=== PATIENT | female | born 1945 | race African-American/Black ===

== ENCOUNTER 2018-05-06 13:31 | Emergency (ER) | payer MEDICARE, MEDICAID ==
[~2018-05-06] VITALS: Ht 170.2 cm; Wt 82.0 kg
[~2018-05-06 13:31] MED LIST: ALPR0.5T PO; ASPI-1159 PO; ATOR20TA65 PO; BENZ200C52 PO; CARV6.2548 PO; Eliquis PO; FURO40TA5 PO; OLME20TA14 PO; POTA10TA15 PO; SPIR25TA6 PO
[2018-05-06 15:18] LABS: HEMATOCRIT. 34.2 % (36.0-48.0); HEMOGLOBIN. 11.7 g/dL (12.0-16.0); MEAN CORPUSCULAR HEMOGLOBIN 30.8 pg (28.0-32.0); MEAN CORPUSCULAR VOLUME 90.5 fL (81.0-99.0); MEAN PLATELET VOLUME 7.6 fl (7.4-10.4); PLATELET 182 x1000/uL (130-400); RED BLOOD CELL COUNT 3.78 mill/uL (4.2-5.4); RED CELL DISTRIBUTION WIDTH 13.8 % (11.6-14.6)
[2018-05-06 15:20] LABS: CHLORIDE 102 mEq/L (98-107)
[2018-05-06 16:04] LABS: ATYPICAL LYMPHOCYTES 2; PLATELET ESTIMATE NORMAL
[2018-05-06 22:49] VITALS: BP 120/68
== END 2018-05-06 22:51 | disposition home or self-care (01) ==
LOC: ER 15:28
DX: R09.82 Postnasal drip (principal); L20.9 Atopic dermatitis, unspecified; I10 Essential (primary) hypertension; R21 Rash and other nonspecific skin eruption; Z79.82 Long term (current) use of aspirin; Z79.899 Other long term (current) drug therapy; Z90.10 Acquired absence of unspecified breast and nipple
CPT/HCPCS: 36415; 71045; 80053; 85025; 99285

== ENCOUNTER 2018-05-09 15:58 | Inpatient (IN) | payer MEDICARE, MEDICAID ==
[~2018-05-09] VITALS: Ht 170.2 cm; Wt 88.9 kg
[2018-05-09] MEDS ORDERED: KETOROLAC 30MG/ML VIAL IV STA (16:45)
[2018-05-09] MEDS ORDERED: SODIUM CHLORIDE 0.9% 1,000 ML IV ONE ×4 (16:45→22:21)
[2018-05-09 17:32] LABS: HEMATOCRIT. 40.1 % (36.0-48.0); HEMOGLOBIN. 13.4 g/dL (12.0-16.0); MEAN CORPUSCULAR HEMOGLOBIN 30.5 pg (28.0-32.0); MEAN CORPUSCULAR VOLUME 90.9 fL (81.0-99.0); MEAN PLATELET VOLUME 8.5 fl (7.4-10.4); PLATELET 134 x1000/uL (130-400); RED BLOOD CELL COUNT 4.41 mill/uL (4.2-5.4)
[2018-05-09 17:36] LABS: CHLORIDE 100 mEq/L (98-107)
[2018-05-09 17:39] LABS: INR 1.3; PROTHROMBIN TIME 13.1 sec (9.1-11.1)
[2018-05-09 17:59] LABS: PLATELET ESTIMATE NORMAL
[2018-05-09] MEDS ORDERED: PIPERACILLIN/TAZ 3.375G PREMIX 50 ML IV ONE (18:30)
[2018-05-09] MEDS ORDERED: VANCOMYCIN 1 G PREMIX 200 ML IV ONE (18:30)
[2018-05-09 23:02] VITALS: BP 111/53
[2018-05-09 23:09] VITALS: BP 100/49
[2018-05-09 23:26] VITALS: BP 111/53
[2018-05-09 23:30] VITALS: BP 119/55
[2018-05-10] VITALS (29 sets, daily range): BP systolic 91–169; BP diastolic 36–113
[2018-05-10] MEDS ORDERED: ONDANSETRON HCL 4MG/2ML VIAL IV PRN (00:15)
[2018-05-10] MEDS ORDERED: TRAMADOL 50MG TABLET PO PRN (01:00)
[2018-05-10] MEDS: BACLOFEN 10MG TABLET PO PRN ×2 (01:31→21:46)
[2018-05-10] MEDS: DEXT 5%/0.45% NACL 1000ML 1,000 ML IV SCH ×2 (01:31→21:47)
[2018-05-10] MEDS: PIPERACILLIN/TAZ 2.25G PREMIX 50 ML IV SCH ×3 (05:30→21:47)
[2018-05-10 05:31] LABS: CHLORIDE 103 mEq/L (98-107); HEMATOCRIT. 31.9 % (36.0-48.0); HEMOGLOBIN. 10.8 g/dL (12.0-16.0); MEAN CORPUSCULAR HEMOGLOBIN 30.8 pg (28.0-32.0); MEAN CORPUSCULAR VOLUME 90.3 fL (81.0-99.0); MEAN PLATELET VOLUME 8.7 fl (7.4-10.4); PLATELET 116 x1000/uL (130-400); RED BLOOD CELL COUNT 3.53 mill/uL (4.2-5.4)
[2018-05-10] MEDS: KETOROLAC 15MG/ML VIAL IV PRN ×2 (05:36→11:36)
[2018-05-10 05:37] LABS: PHOSPHORUS 3.1 mg/dL (2.5-4.9)
[2018-05-10 05:40] LABS: CREATINE KINASE 115 IU/L (26-192); TOTAL IRON BINDING CAPACITY 187 ug/dL (250-450)
[2018-05-10 05:43] LABS: CREATINE KINASE MB FRACTION < 1.0 ng/mL (0.5-3.6); T4 FREE 0.86 ng/dL (0.76-1.46)
[2018-05-10] MEDS: CARVEDILOL 6.25 MG TABLET PO SCH ×2 (08:31→21:46)
[2018-05-10] MEDS: PANTOPRAZOLE SODIUM 40 MG/VIAL IV SCH (08:31)
[2018-05-10] MEDS: POTASSIUM CHLORIDE 20MEQ TABLET SR PO SCH (08:31)
[2018-05-10] MEDS ORDERED: VANCOMYCIN 500 MG PREMIX 100 ML IV NR (09:00)
[2018-05-10 11:03] LABS: PLATELET ESTIMATE SLIGHTLY DECREASED
[2018-05-10] MEDS: ACETAMINOPHEN 325MG TABLET PO PRN ×3 (11:36→21:47)
[2018-05-10 13:56] LABS: CLARITY URINE CLEAR (CLEAR); COLOR URINE YELLOW (YELLOW); KETONES URINE NEGATIVE (NEGATIVE); LEUKOCYTE ESTERASE URINE 1+ (NEGATIVE); NITRITE URINE NEGATIVE (NEGATIVE); OCCULT BLOOD URINE 1+ (NEGATIVE); PROTEIN URINE 1+ (NEGATIVE); SPECIFIC GRAVITY URINE 1.018 (1.005-1.030)
[2018-05-10 14:38] LABS: HEMATOCRIT. 33.3 % (36.0-48.0); HEMOGLOBIN. 11.3 g/dL (12.0-16.0); MEAN CORPUSCULAR HEMOGLOBIN 30.4 pg (28.0-32.0); MEAN CORPUSCULAR VOLUME 89.6 fL (81.0-99.0); MEAN PLATELET VOLUME 8.6 fl (7.4-10.4); PLATELET 123 x1000/uL (130-400); RED BLOOD CELL COUNT 3.72 mill/uL (4.2-5.4)
[2018-05-10 14:49] LABS: CREATINE KINASE 124 IU/L (26-192)
[2018-05-10 14:50] LABS: CREATINE KINASE MB FRACTION < 1.0 ng/mL (0.5-3.6)
[2018-05-10 15:19] LABS: PLATELET ESTIMATE DECREASED
[2018-05-10] MEDS: BENZONATATE 200MG CAPSULE PO PRN (17:47)
[2018-05-10] MEDS: VISCOUS LIDOCAINE 2% 15 ML UDC MM PRN (17:47)
[2018-05-10 21:32] LABS: FERRITIN 639 ng/mL (10-291); FOLIC ACID (FOLATE) SERUM >20 ng/mL ng/mL (>5.38)
[2018-05-10 21:43] LABS: VITAMIN B12 SERUM 1748 pg/mL (211-911)
[2018-05-10] MEDS: ATORVASTATIN CALCIUM 20MG TABLET PO SCH (21:47)
[2018-05-11] VITALS (31 sets, daily range): BP systolic 93–171; BP diastolic 36–110
[2018-05-11] MEDS: ACETAMINOPHEN 325MG TABLET PO PRN ×3 (03:25→21:22)
[2018-05-11 05:42] LABS: HEMATOCRIT. 38.8 % (36.0-48.0); HEMOGLOBIN. 12.9 g/dL (12.0-16.0); MEAN CORPUSCULAR HEMOGLOBIN 30.2 pg (28.0-32.0); MEAN CORPUSCULAR VOLUME 91.2 fL (81.0-99.0); MEAN PLATELET VOLUME 9.3 fl (7.4-10.4); PLATELET 122 x1000/uL (130-400); RED BLOOD CELL COUNT 4.26 mill/uL (4.2-5.4); RED CELL DISTRIBUTION WIDTH 14.3 % (11.6-14.6)
[2018-05-11] MEDS: PIPERACILLIN/TAZ 2.25G PREMIX 50 ML IV SCH ×2 (06:01→13:14)
[2018-05-11] MEDS: POTASSIUM CHLORIDE 20MEQ TABLET SR PO SCH (08:32)
[2018-05-11] MEDS: CARVEDILOL 6.25 MG TABLET PO SCH ×2 (08:32→21:18)
[2018-05-11] MEDS: PANTOPRAZOLE SODIUM 40 MG/VIAL IV SCH (08:32)
[2018-05-11 11:23] LABS: ATYPICAL LYMPHOCYTES 5
[2018-05-11 11:26] LABS: PLATELET ESTIMATE SLIGHTLY DECREASED
[2018-05-11] MEDS ORDERED: VANCOMYCIN 1 G PREMIX 200 ML IV SCH (13:00)
[2018-05-11] MEDS: DEXT 5%/0.45% NACL 1000ML 1,000 ML IV SCH ×2 (16:40→20:48)
[2018-05-11] MEDS ORDERED: LEVOFLOXACIN 500MG TABLET PO NR (17:00)
[2018-05-11] MEDS: CLINDAMYCIN 600MG PREMIX 50 ML IV SCH (18:07)
[2018-05-11] MEDS: DIPHENHYDRAMINE 50MG/ML VIAL IV PRN (18:07)
[2018-05-11] MEDS: DIATR MEGLU/DIATRIZOATE SOLN 30ML PO SCH ×2 (18:41→20:18)
[2018-05-11] MEDS: ATORVASTATIN CALCIUM 20MG TABLET PO SCH (21:18)
[2018-05-12] VITALS (45 sets, daily range): BP systolic 87–178; BP diastolic 37–99
[2018-05-12] MEDS: CLINDAMYCIN 600MG PREMIX 50 ML IV SCH ×3 (02:04→17:31)
[2018-05-12 05:41] LABS: HEMATOCRIT. 34.8 % (36.0-48.0); HEMOGLOBIN. 11.6 g/dL (12.0-16.0); MEAN CORPUSCULAR HEMOGLOBIN 30.5 pg (28.0-32.0); MEAN CORPUSCULAR VOLUME 91.1 fL (81.0-99.0); MEAN PLATELET VOLUME 9.1 fl (7.4-10.4); PLATELET 117 x1000/uL (130-400); RED BLOOD CELL COUNT 3.82 mill/uL (4.2-5.4); RED CELL DISTRIBUTION WIDTH 14.7 % (11.6-14.6)
[2018-05-12 05:47] LABS: CHLORIDE 104 mEq/L (98-107)
[2018-05-12 06:30] LABS: HEPATITIS B SURFACE ANTIGEN NEGATIVE
[2018-05-12 06:45] LABS: PLATELET ESTIMATE DECREASED
[2018-05-12 06:59] LABS: HEPATITIS B CORE AB IGM NEGATIVE
[2018-05-12 07:00] LABS: HEPATITIS A AB IGM NEGATIVE (NEGATIVE)
[2018-05-12] MEDS: PANTOPRAZOLE SODIUM 40 MG/VIAL IV SCH ×2 (08:20→08:47)
[2018-05-12] MEDS: POTASSIUM CHLORIDE 20MEQ TABLET SR PO SCH (08:20)
[2018-05-12] MEDS: CARVEDILOL 6.25 MG TABLET PO SCH ×2 (08:21→21:00)
[2018-05-12] MEDS: ACETAMINOPHEN 325MG TABLET PO PRN ×3 (08:21→23:59)
[2018-05-12] MEDS: DIPHENHYDRAMINE 50MG/ML VIAL IV PRN ×2 (11:28→21:14)
[2018-05-12] MEDS: ASPIRIN 81MG EC TABLET PO SCH (14:01)
[2018-05-12] MEDS: LOSARTAN POTASSIUM 50 MG TABLET PO SCH (14:02)
[2018-05-12] MEDS: VISCOUS LIDOCAINE 2% 15 ML UDC MM PRN (14:02)
[2018-05-12] MEDS: ENOXAPARIN 40MG/0.4ML SYR SUBCUT SCH (14:02)
[2018-05-12] MEDS: LEVOFLOXACIN 250MG TABLET PO SCH (18:36)
[2018-05-12] MEDS: ATORVASTATIN CALCIUM 20MG TABLET PO SCH (20:58)
[2018-05-13] VITALS (33 sets, daily range): BP systolic 111–166; BP diastolic 58–78
[2018-05-13] MEDS: CLINDAMYCIN 600MG PREMIX 50 ML IV SCH ×3 (02:06→17:59)
[2018-05-13] MEDS: ACETAMINOPHEN 325MG TABLET PO PRN ×2 (04:34→19:39)
[2018-05-13 05:46] LABS: HEMATOCRIT. 32.1 % (36.0-48.0); MEAN CORPUSCULAR HEMOGLOBIN 30.5 pg (28.0-32.0); MEAN CORPUSCULAR VOLUME 89.4 fL (81.0-99.0); MEAN PLATELET VOLUME 9.1 fl (7.4-10.4); PLATELET 128 x1000/uL (130-400); RED CELL DISTRIBUTION WIDTH 14.6 % (11.6-14.6)
[2018-05-13] MEDS: DEXT 5%/0.45% NACL 1000ML 1,000 ML IV SCH (06:37)
[2018-05-13] MEDS: LOSARTAN POTASSIUM 50 MG TABLET PO SCH (09:11)
[2018-05-13] MEDS: CARVEDILOL 6.25 MG TABLET PO SCH ×2 (09:11→21:15)
[2018-05-13] MEDS: BACLOFEN 10MG TABLET PO PRN (09:11)
[2018-05-13] MEDS: PANTOPRAZOLE SODIUM 40 MG/VIAL IV SCH (09:11)
[2018-05-13] MEDS: ASPIRIN 81MG EC TABLET PO SCH (09:12)
[2018-05-13 09:42] LABS: PLATELET ESTIMATE SLIGHTLY DECREASED
[2018-05-13] MEDS ORDERED: CETIRIZINE 10MG TABLET PO SCH (10:13)
[2018-05-13] MEDS: ENOXAPARIN 40MG/0.4ML SYR SUBCUT SCH (15:00)
[2018-05-13] MEDS: LEVOFLOXACIN 250MG TABLET PO SCH (18:14)
[2018-05-13 19:09] LABS: ANTI-NUCLEAR ANTIBODIES DIRECT Positive (Negative)
[2018-05-13] MEDS: CETIRIZINE 10MG TABLET PO SCH (19:39)
[2018-05-13] MEDS: ATORVASTATIN CALCIUM 20MG TABLET PO SCH (21:15)
[2018-05-14] VITALS (12 sets, daily range): BP systolic 104–163; BP diastolic 50–86
[2018-05-14] MEDS: CLINDAMYCIN 600MG PREMIX 50 ML IV SCH ×3 (02:09→17:28)
[2018-05-14] MEDS: DEXT 5%/0.45% NACL 1000ML 1,000 ML IV SCH (04:47)
[2018-05-14] MEDS: LOSARTAN POTASSIUM 50 MG TABLET PO SCH (08:41)
[2018-05-14] MEDS: ASPIRIN 81MG EC TABLET PO SCH (08:41)
[2018-05-14] MEDS: PANTOPRAZOLE SODIUM 40 MG/VIAL IV SCH (08:42)
[2018-05-14] MEDS: CARVEDILOL 6.25 MG TABLET PO SCH ×2 (08:42→21:48)
[2018-05-14] MEDS: CETIRIZINE 10MG TABLET PO SCH (10:05)
[2018-05-14] MEDS: ENOXAPARIN 40MG/0.4ML SYR SUBCUT SCH (15:36)
[2018-05-14] MEDS ORDERED: NYSTATIN 100,000 UNITS/ML 5ML UDC SSW SCH (17:00)
[2018-05-14] MEDS: LEVOFLOXACIN 250MG TABLET PO SCH (17:28)
[2018-05-14] MEDS: ACETAMINOPHEN 325MG TABLET PO PRN (17:28)
[2018-05-14] MEDS: ATORVASTATIN CALCIUM 20MG TABLET PO SCH (21:48)
[2018-05-15] VITALS (12 sets, daily range): BP systolic 97–152; BP diastolic 40–86
[2018-05-15] MEDS: DEXT 5%/0.45% NACL 1000ML 1,000 ML IV SCH ×2 (00:24→21:52)
[2018-05-15] MEDS: CLINDAMYCIN 600MG PREMIX 50 ML IV SCH ×3 (02:05→18:16)
[2018-05-15 06:01] LABS: HEMATOCRIT 27.2 % (36.0-48.0); HEMOGLOBIN 9.6 g/dL (12.0-16.0); MEAN CORPUSCULAR HEMOGLOBIN 31.3 pg (28.0-32.0); MEAN CORPUSCULAR VOLUME 88.3 fL (81.0-99.0); PLATELET 153 x1000/uL (130-400); RED BLOOD CELL COUNT 3.08 mill/uL (4.2-5.4); RED CELL DISTRIBUTION WIDTH 14.1 % (11.6-14.6)
[2018-05-15 06:08] LABS: CHLORIDE 105 mEq/L (98-107)
[2018-05-15 06:13] LABS: PHOSPHORUS 2.2 mg/dL (2.5-4.9)
[2018-05-15] MEDS: NYSTATIN 100,000 UNITS/ML 5ML UDC SSW SCH ×4 (07:45→21:00)
[2018-05-15] MEDS: BENZONATATE 200MG CAPSULE PO PRN (08:45)
[2018-05-15] MEDS: CETIRIZINE 10MG TABLET PO SCH (08:45)
[2018-05-15] MEDS: BACLOFEN 10MG TABLET PO PRN ×2 (08:45→16:41)
[2018-05-15] MEDS: ASPIRIN 81MG EC TABLET PO SCH (08:45)
[2018-05-15] MEDS: LOSARTAN POTASSIUM 50 MG TABLET PO SCH (08:45)
[2018-05-15] MEDS: PANTOPRAZOLE SODIUM 40 MG/VIAL IV SCH (08:46)
[2018-05-15] MEDS: CARVEDILOL 6.25 MG TABLET PO SCH (08:46)
[2018-05-15] MEDS ORDERED: POTASSIUM PHOS,M-BASIC-D-BASIC 30 MMOL in DEXT 5% WATER 500 ML IV NR (09:00)
[2018-05-15] MEDS ORDERED: MAGNESIUM 4 G PREMIX 100 ML IV NR (09:00)
[2018-05-15] MEDS: VISCOUS LIDOCAINE 2% 15 ML UDC MM PRN (12:45)
[2018-05-15] MEDS: ENOXAPARIN 40MG/0.4ML SYR SUBCUT SCH (14:52)
[2018-05-15] MEDS: POTASSIUM CHLORIDE 20MEQ/PACKET PO SCH (16:41)
[2018-05-15] MEDS: POTASSIUM-SODIUM PHOSPHATE POWDER PACKET PO SCH (16:41)
[2018-05-15] MEDS: LEVOFLOXACIN 250MG TABLET PO SCH (18:16)
[2018-05-15] MEDS: CARVEDILOL 12.5MG TABLET PO SCH (21:00)
[2018-05-15] MEDS: ATORVASTATIN CALCIUM 20MG TABLET PO SCH (21:50)
[2018-05-16] VITALS (12 sets, daily range): BP systolic 94–157; BP diastolic 54–91
[2018-05-16] MEDS: CLINDAMYCIN 600MG PREMIX 50 ML IV SCH ×2 (02:06→10:52)
[2018-05-16 04:11] LABS: 25-HYDROXY VITAMIN D3 36 ng/mL (.)
[2018-05-16 06:27] LABS: HEMATOCRIT. 27.8 % (36.0-48.0); HEMOGLOBIN. 9.9 g/dL (12.0-16.0); MEAN CORPUSCULAR HEMOGLOBIN 31.7 pg (28.0-32.0); MEAN CORPUSCULAR VOLUME 89.1 fL (81.0-99.0); MEAN PLATELET VOLUME 9.1 fl (7.4-10.4); PLATELET 173 x1000/uL (130-400); RED BLOOD CELL COUNT 3.12 mill/uL (4.2-5.4)
[2018-05-16 06:35] LABS: CHLORIDE 106 mEq/L (98-107)
[2018-05-16 06:40] LABS: PHOSPHORUS 2.8 mg/dL (2.5-4.9)
[2018-05-16] MEDS: NYSTATIN 100,000 UNITS/ML 5ML UDC SSW SCH ×4 (08:08→21:25)
[2018-05-16] MEDS: ASPIRIN 81MG EC TABLET PO SCH (08:08)
[2018-05-16] MEDS: PANTOPRAZOLE SODIUM 40 MG/VIAL IV SCH (08:08)
[2018-05-16] MEDS: CETIRIZINE 10MG TABLET PO SCH (08:09)
[2018-05-16] MEDS: POTASSIUM-SODIUM PHOSPHATE POWDER PACKET PO SCH ×2 (08:09→17:00)
[2018-05-16] MEDS: CARVEDILOL 12.5MG TABLET PO SCH ×2 (08:09→21:25)
[2018-05-16] MEDS: BENZONATATE 200MG CAPSULE PO PRN (08:09)
[2018-05-16] MEDS: LOSARTAN POTASSIUM 50 MG TABLET PO SCH (08:09)
[2018-05-16] MEDS: POTASSIUM CHLORIDE 20MEQ/PACKET PO SCH ×2 (08:09→17:00)
[2018-05-16] MEDS: BACLOFEN 10MG TABLET PO PRN (08:09)
[2018-05-16 09:11] LABS: ANTI-MYELOPEROXIDASE AB < 9.0 U/mL (0.0-9.0); ANTI-PROTEINASE 3 ABS < 3.5 U/mL (0.0-3.5)
[2018-05-16] MEDS ORDERED: POTASSIUM CHLORIDE 20MEQ TABLET SR PO SCH (13:45)
[2018-05-16] MEDS ORDERED: PHENOL/SODIUM PHENOLATE 1.4% SRPAY 177ML MM PRN (14:00)
[2018-05-16] MEDS: ENOXAPARIN 40MG/0.4ML SYR SUBCUT SCH (14:44)
[2018-05-16 15:07] LABS: ATYPICAL P-ANCA <1:20 titer (Neg:<1:20); CYTOPLASMIC C-ANCA <1:20 titer (Neg:<1:20); PERINUCLEAR P-ANCA <1:20 titer (Neg:<1:20)
[2018-05-16 19:34] LABS: PLATELET ESTIMATE NORMAL
[2018-05-16] MEDS: METHYLPREDNISOLONE SOD SUCC 40 MG/ML VIAL IV SCH (20:53)
[2018-05-16] MEDS: ATORVASTATIN CALCIUM 20MG TABLET PO SCH (21:24)
[2018-05-17] VITALS (12 sets, daily range): BP systolic 128–159; BP diastolic 60–86
[2018-05-17] MEDS: METHYLPREDNISOLONE SOD SUCC 40 MG/ML VIAL IV SCH ×3 (04:35→20:03)
[2018-05-17 06:45] LABS: HEMATOCRIT. 26.7 % (36.0-48.0); HEMOGLOBIN. 9.2 g/dL (12.0-16.0); MEAN CORPUSCULAR HEMOGLOBIN 31.1 pg (28.0-32.0); MEAN CORPUSCULAR VOLUME 90.1 fL (81.0-99.0); MEAN PLATELET VOLUME 8.7 fl (7.4-10.4); PLATELET 205 x1000/uL (130-400); RED BLOOD CELL COUNT 2.96 mill/uL (4.2-5.4); RED CELL DISTRIBUTION WIDTH 14.2 % (11.6-14.6)
[2018-05-17] MEDS: PANTOPRAZOLE SODIUM 40 MG/VIAL IV SCH (09:16)
[2018-05-17] MEDS: POTASSIUM-SODIUM PHOSPHATE POWDER PACKET PO SCH (09:16)
[2018-05-17] MEDS: NYSTATIN 100,000 UNITS/ML 5ML UDC SSW SCH (09:18)
[2018-05-17] MEDS: CARVEDILOL 12.5MG TABLET PO SCH ×2 (09:18→21:32)
[2018-05-17] MEDS: CETIRIZINE 10MG TABLET PO SCH (09:18)
[2018-05-17] MEDS: ASPIRIN 81MG EC TABLET PO SCH (09:18)
[2018-05-17] MEDS: ENOXAPARIN 40MG/0.4ML SYR SUBCUT SCH (16:25)
[2018-05-17] MEDS ORDERED: NYSTATIN 100,000 UNITS/ML 5ML UDC SSW PRN (16:34)
[2018-05-17 16:45] LABS: PLATELET ESTIMATE NORMAL
[2018-05-17 19:06] LABS: ANTI-DNA DOUBLE STRANDED QUANT 1 IU/mL (0-9); RNP ANTIBODY 0.9 AI (0.0-0.9); SMITH ANTIBODY < 0.2 AI (0.0-0.9)
[2018-05-17] MEDS: ATORVASTATIN CALCIUM 20MG TABLET PO SCH (21:31)
[2018-05-18] VITALS (12 sets, daily range): BP systolic 117–168; BP diastolic 31–81
[2018-05-18] MEDS: METHYLPREDNISOLONE SOD SUCC 40 MG/ML VIAL IV SCH ×2 (04:13→12:24)
[2018-05-18 06:19] LABS: BASOPHILS % 0.5 % (0.0-2.0); EOSINOPHILS % 0.5 % (0.0-5.0); HEMATOCRIT. 24.3 % (36.0-48.0); HEMOGLOBIN. 8.4 g/dL (12.0-16.0); LYMPHOCYTES % 15.2 % (20.0-50.0); MEAN CORPUSCULAR HEMOGLOBIN 31.1 pg (28.0-32.0); MEAN CORPUSCULAR VOLUME 89.4 fL (81.0-99.0); MEAN PLATELET VOLUME 8.3 fl (7.4-10.4); MONOCYTES % 14.1 % (2.0-8.0); NEUTROPHILS % 69.7 % (40.0-76.0); PLATELET 220 x1000/uL (130-400); RED BLOOD CELL COUNT 2.72 mill/uL (4.2-5.4); RED CELL DISTRIBUTION WIDTH 14.2 % (11.6-14.6)
[2018-05-18 09:11] LABS: COMPLEMENT C3 133 mg/dL (82-167)
[2018-05-18] MEDS: CETIRIZINE 10MG TABLET PO SCH (09:29)
[2018-05-18] MEDS: ASPIRIN 81MG EC TABLET PO SCH (09:29)
[2018-05-18] MEDS: BENZONATATE 200MG CAPSULE PO PRN (09:29)
[2018-05-18] MEDS: PANTOPRAZOLE SODIUM 40 MG/VIAL IV SCH (09:29)
[2018-05-18] MEDS: CARVEDILOL 12.5MG TABLET PO SCH (09:33)
[2018-05-18] MEDS: ENOXAPARIN 40MG/0.4ML SYR SUBCUT SCH (14:49)
== END 2018-05-18 19:20 | disposition home or self-care (01) | DRG 871 ==
LOC: ER 15:58 → ENRESERV 21:03 → CANRESERV 21:03 → CVICU 22:08 → EDBEDREQSVC 22:11 → EDBEDREQTM 22:11 → ENRESERV 22:15 → 3WST 05-13 22:30
PROVIDERS: ADMIT Internal Medicine; ATTEND Internal Medicine
PROC: 05H733Z Insertion of Infusion Device into Right Axillary Vein, Percutaneous Approach (ICD-10-PCS; principal; 2018-05-12)
PROC: B54MZZA Ultrasonography of Right Upper Extremity Veins, Guidance (ICD-10-PCS; 2018-05-12)
DX: A41.9 Sepsis, unspecified organism (principal); I50.23 Acute on chronic systolic (congestive) heart failure; I42.0 Dilated cardiomyopathy; N17.9 Acute kidney failure, unspecified; E87.2 Acidosis; E46 Unspecified protein-calorie malnutrition; K86.2 Cyst of pancreas; M31.30 Wegener's granulomatosis without renal involvement; M31.7 Microscopic polyangiitis; R57.9 Shock, unspecified; I31.9 Disease of pericardium, unspecified; K92.1 Melena; G90.8 Other disorders of autonomic nervous system; K80.20 Calculus of gallbladder without cholecystitis without obstruction; D69.6 Thrombocytopenia, unspecified; I11.0 Hypertensive heart disease with heart failure; J02.9 Acute pharyngitis, unspecified; D50.9 Iron deficiency anemia, unspecified; E83.39 Other disorders of phosphorus metabolism; E87.6 Hypokalemia; J32.0 Chronic maxillary sinusitis; K12.0 Recurrent oral aphthae; L29.9 Pruritus, unspecified; M32.9 Systemic lupus erythematosus, unspecified; R31.9 Hematuria, unspecified; D63.8 Anemia in other chronic diseases classified elsewhere; E86.0 Dehydration; R13.10 Dysphagia, unspecified; Z82.3 Family history of stroke; Z82.49 Family history of ischemic heart disease and other diseases of the circulatory system; Z85.3 Personal history of malignant neoplasm of breast; Z95.810 Presence of automatic (implantable) cardiac defibrillator; Z86.711 Personal history of pulmonary embolism; Z86.718 Personal history of other venous thrombosis and embolism; Z87.01 Personal history of pneumonia (recurrent); Z90.13 Acquired absence of bilateral breasts and nipples; Z92.21 Personal history of antineoplastic chemotherapy; Z92.3 Personal history of irradiation
CPT/HCPCS: 36415; 36569; 70486; 70490; 71045; 74176; 76700; 76937; 78227; 80048; 80053; 80069; 80076; 80202; 81003; 82270; 82306; 82550; 82553; 82607; 82728; 82746; 82785; 83520; 83540; 83550; 83605; 83615; 83690; 83735; 83880; 84100; 84145; 84439; 84443; 84450; 84460; 84480; 84481; 84484; 84550; 85025; 85027; 85610; 85651; 86038; 86140; 86160; 86225; 86235; 86256; 86300; 86592; 86635; 86677; 86682; 86705; 86709; 86803; 86850; 86900; 87040; 87070; 87086; 87340; 87899; 92610; 93005; 93306; 93970; 96361; 96365; 96366; 96375; 97110; 97116; 97162; 97165; 97530; 99285; A6261; A9537; C1725; C1769; C1892; C1893; C9113; J1200; J1650; J1885; J2543; J2920; J3370; J3475; J3490; J7030; J7040; J7060; J7070; Q9963; A4315

== ENCOUNTER → 2018-11-29 | Outpatient (CLI) | payer MEDICARE, MEDICAID | END | disposition home or self-care (01) | LOC: CARD 10:00 | PROVIDERS: ATTEND Psychiatry & Neurology Neurology | DX: R41.3 Other amnesia (principal) ==

== ENCOUNTER 2020-05-23 20:38 | Inpatient (IN) | payer MEDICARE, MEDICAID ==
[~2020-05-23] VITALS: Ht 170.2 cm; Wt 58.5 kg
[2020-05-23 20:30] VITALS: BP 126/72
[~2020-05-23 20:38] MED LIST changes: -ASPI-1159 PO; +ASPI-1497 PO; +OLME20TA13 PO; -OLME20TA14 PO
[2020-05-23] MEDS ORDERED: CLONIDINE 0.1MG TABLET PO PRN (21:30)
[2020-05-23] MEDS ORDERED: DIPHENHYDRAMINE 50MG/ML VIAL IV PRN (21:30)
[2020-05-23] MEDS ORDERED: MAGNESIUM/ALUMINUM HYDROXIDE/SIMETHICONE 30ML UDC PO PRN (21:30)
[2020-05-23] MEDS ORDERED: ACETAMINOPHEN 325MG TABLET PO PRN ×2 (21:30)
[2020-05-23] MEDS ORDERED: ONDANSETRON HCL 4MG/2ML INJ IV PRN (21:30)
[2020-05-23 21:40] VITALS: BP 126/72
[2020-05-23] MEDS: SODIUM CHLORIDE 0.9% INJ 3ML FLUSH IVF SCH (22:00)
[2020-05-23] MEDS ORDERED: FOLI-43 PO (22:09)
[2020-05-23] MEDS ORDERED: CLOP75TA15 MT (22:10)
[2020-05-23] MEDS ORDERED: SACU1TAB MT (22:10)
[2020-05-24] VITALS (12 sets, daily range): BP systolic 90–131; BP diastolic 60–80
[2020-05-24 02:11] LABS: EOSINOPHILS % 0.9 % (0.0-5.0)
[2020-05-24 02:37] LABS: BASOPHILS % 0.6 % (0.0-2.0); LYMPHOCYTES % 9.9 % (20.0-50.0); MEAN CORPUSCULAR HEMOGLOBIN 26.5 pg (28.0-32.0); MEAN CORPUSCULAR VOLUME 81.4 fL (81.0-99.0); MEAN PLATELET VOLUME 7.4 fl (7.4-10.4); MONOCYTES % 12.2 % (2.0-8.0); NEUTROPHILS % 76.4 % (40.0-76.0); PLATELET 337 x1000/uL (130-400); RED BLOOD CELL COUNT 2.48 mill/uL (4.2-5.4); RED CELL DISTRIBUTION WIDTH 16.2 % (11.6-14.6)
[2020-05-24 02:43] LABS: CHLORIDE 100 mEq/L (98-107)
[2020-05-24 02:48] LABS: TOTAL IRON BINDING CAPACITY 127 ug/dL (250-450)
[2020-05-24 02:49] LABS: PHOSPHORUS 2.6 mg/dL (2.5-4.9)
[2020-05-24 02:50] LABS: HEMATOCRIT. 20.2 % (36.0-48.0); HEMOGLOBIN. 6.6 g/dL (12.0-16.0)
[2020-05-24 03:05] LABS: INR 1.2
[2020-05-24] MEDS ORDERED: POTASSIUM CHLORIDE 20MEQ TABLET SR PO SCH (05:00)
[2020-05-24] MEDS: SODIUM CHLORIDE 0.9% INJ 3ML FLUSH IVF SCH ×3 (05:09→23:10)
[2020-05-24] MEDS: GUAIFENESIN 200MG/10ML SUGAR FREE UDC PO PRN ×2 (05:09→08:10)
[2020-05-24] MEDS ORDERED: MAGNESIUM 4 G PREMIX 100 ML IV SCH (06:00)
[2020-05-24] MEDS ORDERED: ALBUTEROL 6.7GM HFA INHALER ORI SCH (08:00)
[2020-05-24] MEDS: POTASSIUM CHLORIDE 20MEQ TABLET SR PO SCH (08:10)
[2020-05-24] MEDS: FUROSEMIDE 40MG TABLET PO SCH (08:11)
[2020-05-24] MEDS: CARVEDILOL 6.25 MG TABLET PO SCH (08:11)
[2020-05-24] MEDS: ENTRESTO PO SCH ×2 (08:12→20:22)
[2020-05-24] MEDS ORDERED: MEDICATION NOT ON FORMULARY EA (Sacubitril/Valsartan (Entresto 24 mg-26 mg Tablet) 1 TAB MT SCH (09:00)
[2020-05-24] MEDS ORDERED: CLOPIDOGREL 75MG TABLET PO SCH (09:00)
[2020-05-24] MEDS: FOLIC ACID 1MG TABLET PO SCH (10:07)
[2020-05-24] MEDS ORDERED: CEFTRIAXONE SODIUM 1 G/VIAL IV STA (11:45)
[2020-05-24] MEDS ORDERED: CEFTRIAXONE 1,000 MG in DEXTROSE 5% WATER 50 ML IV NR (13:00)
[2020-05-24] MEDS ORDERED: AZITHROMYCIN 500 MG in DEXT 5% WATER 250 ML IV NR (14:00)
[2020-05-24] MEDS ORDERED: BENZONATATE 100MG CAPSULE PO PRN (14:15)
[2020-05-24] MEDS: ENOXAPARIN 40MG/0.4ML SYR SUBCUT SCH ×2 (15:14→23:00)
[2020-05-24] MEDS: HYDROCODONE/ACETAMINOPHEN 5/325MG TABLET PO PRN (15:24)
[2020-05-24 20:21] LABS: CLARITY URINE CLEAR (CLEAR); COLOR URINE YELLOW (YELLOW); KETONES URINE TRACE (NEGATIVE); LEUKOCYTE ESTERASE URINE NEGATIVE (NEGATIVE); NITRITE URINE NEGATIVE (NEGATIVE); OCCULT BLOOD URINE 2+ (NEGATIVE); PROTEIN URINE 1+ (NEGATIVE); SPECIFIC GRAVITY URINE 1.017 (1.005-1.030); UROBILINOGEN URINE 0.2 E.U./dL (0.2-1.0)
[2020-05-24] MEDS: ZOLPIDEM TARTRATE 5MG TABLET PO PRN (20:23)
[2020-05-24] MEDS: IRON SUCROSE COMPLEX 100 MG/5 ML ML IV SCH (20:23)
[2020-05-24] MEDS ORDERED: IOHEXOL-350 100 ML BOTTLE ONE (21:37)
[2020-05-25] VITALS: BP 120/74
[2020-05-25] MEDS: GUAIFENESIN 200MG/10ML SUGAR FREE UDC PO PRN (00:49)
[2020-05-25 01:36] LABS: HEMATOCRIT 29.6 % (36.0-48.0); HEMOGLOBIN 9.9 g/dL (12.0-16.0)
[2020-05-25 04:00] VITALS: BP 110/65
[2020-05-25] MEDS: SODIUM CHLORIDE 0.9% INJ 3ML FLUSH IVF SCH ×3 (05:35→21:15)
[2020-05-25 07:54] LABS: BASOPHILS % 0.3 % (0.0-2.0); HEMATOCRIT. 28.6 % (36.0-48.0); HEMOGLOBIN. 9.5 g/dL (12.0-16.0); LYMPHOCYTES % 8.5 % (20.0-50.0); MEAN CORPUSCULAR HEMOGLOBIN 27.4 pg (28.0-32.0); MEAN CORPUSCULAR VOLUME 82.6 fL (81.0-99.0); MEAN PLATELET VOLUME 7.5 fl (7.4-10.4); NEUTROPHILS % 79.2 % (40.0-76.0); PLATELET 387 x1000/uL (130-400); RED BLOOD CELL COUNT 3.46 mill/uL (4.2-5.4)
[2020-05-25 08:00] VITALS: BP_SYST 155; BP_DIAS 103; BP_DIAS 123
[2020-05-25] MEDS: FUROSEMIDE 40MG TABLET PO SCH (09:13)
[2020-05-25] MEDS: POTASSIUM CHLORIDE 20MEQ TABLET SR PO SCH (09:13)
[2020-05-25] MEDS: FOLIC ACID 1MG TABLET PO SCH (09:14)
[2020-05-25] MEDS: CARVEDILOL 6.25 MG TABLET PO SCH (09:14)
[2020-05-25] MEDS: ENTRESTO PO SCH ×2 (09:14→21:13)
[2020-05-25] MEDS: IRON SUCROSE COMPLEX 100 MG/5 ML ML IV SCH (09:15)
[2020-05-25 10:08] LABS: CHLORIDE 100 mEq/L (98-107)
[2020-05-25 10:13] LABS: PHOSPHORUS 2.9 mg/dL (2.5-4.9)
[2020-05-25 12:00] VITALS: BP 144/116
[2020-05-25] MEDS: ENOXAPARIN 40MG/0.4ML SYR SUBCUT SCH (12:20)
[2020-05-25] MEDS: ALBUTEROL (0.083%) 2.5MG/3ML NEB HHN SCH (14:48)
[2020-05-25 16:00] VITALS: BP_SYST 137; BP_DIAS 110; BP_DIAS 89
[2020-05-25 20:00] VITALS: BP 107/63
[2020-05-25] MEDS: ENOXAPARIN 60MG/0.6ML SYR SUBCUT SCH (21:13)
[2020-05-25] MEDS: ZOLPIDEM TARTRATE 5MG TABLET PO PRN (21:15)
[2020-05-26] VITALS: BP 100/72
[2020-05-26] MEDS: ALBUTEROL (0.083%) 2.5MG/3ML NEB HHN SCH ×2 (02:10→09:33)
[2020-05-26 04:00] VITALS: BP 130/52
[2020-05-26] MEDS: SODIUM CHLORIDE 0.9% INJ 3ML FLUSH IVF SCH ×3 (06:38→21:18)
[2020-05-26 07:32] LABS: HAPTOGLOBIN 380 mg/dL (30-200)
[2020-05-26 08:00] VITALS: BP 92/48
[2020-05-26] MEDS: FUROSEMIDE 40MG TABLET PO SCH (09:00)
[2020-05-26] MEDS: CARVEDILOL 6.25 MG TABLET PO SCH (09:00)
[2020-05-26] MEDS: IRON SUCROSE COMPLEX 100 MG/5 ML ML IV SCH (10:07)
[2020-05-26] MEDS: POTASSIUM CHLORIDE 20MEQ TABLET SR PO SCH (10:07)
[2020-05-26] MEDS: ENOXAPARIN 60MG/0.6ML SYR SUBCUT SCH ×2 (10:07→21:17)
[2020-05-26] MEDS: FOLIC ACID 1MG TABLET PO SCH (10:07)
[2020-05-26] MEDS: ENTRESTO PO SCH ×2 (10:13→21:17)
[2020-05-26 12:00] VITALS: BP 131/45
[2020-05-26] MEDS ORDERED: BENZONATATE 100MG CAPSULE PO SCH (14:15)
[2020-05-26 16:00] VITALS: BP 102/81
[2020-05-26] MEDS: ZOLPIDEM TARTRATE 5MG TABLET PO PRN (18:47)
[2020-05-26 20:00] VITALS: BP 105/77
[2020-05-26] MEDS: BENZONATATE 100MG CAPSULE PO SCH (21:17)
[2020-05-27] VITALS: BP 125/72
[2020-05-27 04:00] VITALS: BP 113/71
[2020-05-27] MEDS: BENZONATATE 100MG CAPSULE PO SCH ×3 (06:04→21:55)
[2020-05-27] MEDS: SODIUM CHLORIDE 0.9% INJ 3ML FLUSH IVF SCH ×3 (06:04→21:55)
[2020-05-27 08:00] VITALS: BP 107/68
[2020-05-27] MEDS: CARVEDILOL 6.25 MG TABLET PO SCH (09:00)
[2020-05-27] MEDS: POTASSIUM CHLORIDE 20MEQ TABLET SR PO SCH ×2 (09:00→09:54)
[2020-05-27] MEDS: FUROSEMIDE 40MG TABLET PO SCH (09:54)
[2020-05-27] MEDS: ENOXAPARIN 60MG/0.6ML SYR SUBCUT SCH (09:54)
[2020-05-27] MEDS: FOLIC ACID 1MG TABLET PO SCH (09:55)
[2020-05-27] MEDS: ENTRESTO PO SCH ×2 (09:55→21:55)
[2020-05-27 12:00] VITALS: BP 103/73
[2020-05-27] MEDS ORDERED: MAGNESIUM HYDROXIDE 400MG/5ML 30ML UDC PO PRN (14:00)
[2020-05-27 16:00] VITALS: BP 115/68
[2020-05-27] MEDS: ZOLPIDEM TARTRATE 5MG TABLET PO PRN (19:26)
[2020-05-27 20:00] VITALS: BP 110/68
[2020-05-27 21:31] LABS: VITAMIN B12 SERUM 1935 pg/mL (211-911)
[2020-05-27 21:34] LABS: FOLIC ACID (FOLATE) SERUM > 20.00 ng/mL (>5.38)
[2020-05-28] VITALS: BP 103/65
[2020-05-28 04:00] VITALS: BP 100/62
[2020-05-28] MEDS: SODIUM CHLORIDE 0.9% INJ 3ML FLUSH IVF SCH ×3 (05:24→21:07)
[2020-05-28] MEDS: BENZONATATE 100MG CAPSULE PO SCH ×3 (05:24→21:07)
[2020-05-28 06:22] LABS: CHLORIDE 99 mEq/L (98-107)
[2020-05-28 06:40] LABS: HEMATOCRIT. 28.2 % (36.0-48.0); HEMOGLOBIN. 9.3 g/dL (12.0-16.0); MEAN CORPUSCULAR HEMOGLOBIN 27.3 pg (28.0-32.0); MEAN CORPUSCULAR VOLUME 82.7 fL (81.0-99.0); MEAN PLATELET VOLUME 7.3 fl (7.4-10.4); PLATELET 362 x1000/uL (130-400); RED BLOOD CELL COUNT 3.41 mill/uL (4.2-5.4); RED CELL DISTRIBUTION WIDTH 16.4 % (11.6-14.6)
[2020-05-28 08:00] VITALS: BP 94/66
[2020-05-28] MEDS: FOLIC ACID 1MG TABLET PO SCH (08:49)
[2020-05-28] MEDS: ENTRESTO PO SCH ×2 (08:49→21:07)
[2020-05-28] MEDS: POTASSIUM CHLORIDE 20MEQ TABLET SR PO SCH (08:50)
[2020-05-28] MEDS: FUROSEMIDE 40MG TABLET PO SCH (08:50)
[2020-05-28] MEDS: CARVEDILOL 6.25 MG TABLET PO SCH (08:51)
[2020-05-28 09:07] LABS: IMMUNOGLOBULIN A 700 mg/dL (64-422); IMMUNOGLOBULIN G 1359 mg/dL (586-1602); IMMUNOGLOBULIN M 37 mg/dL (26-217)
[2020-05-28] MEDS ORDERED: KCL 20MEQ/100ML PREMIX 100 ML IV SCH (10:00)
[2020-05-28] MEDS ORDERED: MAGNESIUM 2 G PREMIX 50 ML IV SCH (10:00)
[2020-05-28] MEDS ORDERED: POTASSIUM CHLORIDE 20MEQ TABLET SR PO NR (11:00)
[2020-05-28] MEDS: HYDROCODONE/ACETAMINOPHEN 5/325MG TABLET PO PRN (11:07)
[2020-05-28 12:00] VITALS: BP 93/71
[2020-05-28 16:00] VITALS: BP 95/67
[2020-05-28 17:43] LABS: PLATELET ESTIMATE NORMAL
[2020-05-28 20:00] VITALS: BP 108/73
[2020-05-28] MEDS: ZOLPIDEM TARTRATE 5MG TABLET PO PRN (21:10)
[2020-05-29] VITALS (16 sets, daily range): BP systolic 94–108; BP diastolic 62–77
[2020-05-29 06:18] LABS: CHLORIDE 101 mEq/L (98-107)
[2020-05-29] MEDS: SODIUM CHLORIDE 0.9% INJ 3ML FLUSH IVF SCH ×2 (06:28→14:19)
[2020-05-29] MEDS: BENZONATATE 100MG CAPSULE PO SCH ×2 (06:28→14:00)
[2020-05-29 06:56] LABS: HEMATOCRIT. 27.9 % (36.0-48.0); HEMOGLOBIN. 9.1 g/dL (12.0-16.0); MEAN CORPUSCULAR VOLUME 82.7 fL (81.0-99.0); MEAN PLATELET VOLUME 7.4 fl (7.4-10.4); PLATELET 366 x1000/uL (130-400); RED BLOOD CELL COUNT 3.38 mill/uL (4.2-5.4); RED CELL DISTRIBUTION WIDTH 16.8 % (11.6-14.6)
[2020-05-29] MEDS: CARVEDILOL 6.25 MG TABLET PO SCH (09:00)
[2020-05-29] MEDS: ENTRESTO PO SCH (09:00)
[2020-05-29 09:07] LABS: CA 27.29 34.5 U/mL (0.0-38.6)
[2020-05-29] MEDS: FOLIC ACID 1MG TABLET PO SCH (09:48)
[2020-05-29] MEDS: FUROSEMIDE 40MG TABLET PO SCH (09:48)
[2020-05-29] MEDS: POTASSIUM CHLORIDE 20MEQ TABLET SR PO SCH (09:48)
[2020-05-29] MEDS ORDERED: LIDOCAINE HCL 1% 20ML VIAL (Pyxis) INJ ONE (10:03)
[2020-05-29] MEDS ORDERED: FENTANYL CITRATE/PF 50MCG/ML 2ML VIAL ONE (10:03)
[2020-05-29] MEDS ORDERED: SODIUM BICARBONATE 4% (2.4MEQ) 5ML VIAL IV ONE (10:03)
[2020-05-29] MEDS ORDERED: FENTANYL CITRATE/PF 50MCG/ML 2ML VIAL IV ONE (11:30)
[2020-05-29 13:06] LABS: HGB A 97.7 % (96.4-98.8); HGB A2 2.3 % (1.8-3.2)
[2020-05-29 17:13] LABS: PLATELET ESTIMATE NORMAL
[2020-05-30 17:10] LABS: ANA IFA Positive (.)
== END 2020-05-29 17:38 | disposition home or self-care (01) | DRG 180 ==
LOC: 5WST 20:38 → 7WST 05-24 02:12 → 5WST 05-24 17:04
PROVIDERS: ADMIT Internal Medicine; ATTEND Internal Medicine
PROC: 30233N1 Transfusion of Nonautologous Red Blood Cells into Peripheral Vein, Percutaneous Approach (ICD-10-PCS; 2020-05-24)
PROC: 0BBG3ZX Excision of Left Upper Lung Lobe, Percutaneous Approach, Diagnostic (ICD-10-PCS; principal; 2020-05-29)
DX: C34.12 Malignant neoplasm of upper lobe, left bronchus or lung (principal); J96.01 Acute respiratory failure with hypoxia; K86.2 Cyst of pancreas; D68.59 Other primary thrombophilia; E46 Unspecified protein-calorie malnutrition; I13.0 Hypertensive heart and chronic kidney disease with heart failure and stage 1 through stage 4 chronic kidney disease, or unspecified chronic kidney disease; I31.3 Pericardial effusion (noninflammatory); I42.9 Cardiomyopathy, unspecified; I47.2 Ventricular tachycardia; I50.20 Unspecified systolic (congestive) heart failure; I82.502 Chronic embolism and thrombosis of unspecified deep veins of left lower extremity; E22.2 Syndrome of inappropriate secretion of antidiuretic hormone; I82.512 Chronic embolism and thrombosis of left femoral vein; M08.20 Juvenile rheumatoid arthritis with systemic onset, unspecified site; D50.9 Iron deficiency anemia, unspecified; D63.8 Anemia in other chronic diseases classified elsewhere; D57.1 Sickle-cell disease without crisis; I95.9 Hypotension, unspecified; M32.9 Systemic lupus erythematosus, unspecified; E83.42 Hypomagnesemia; R59.9 Enlarged lymph nodes, unspecified; N18.9 Chronic kidney disease, unspecified; Z20.828 Contact with and (suspected) exposure to other viral communicable diseases; Z85.3 Personal history of malignant neoplasm of breast; Z86.711 Personal history of pulmonary embolism; Z90.13 Acquired absence of bilateral breasts and nipples; Z95.810 Presence of automatic (implantable) cardiac defibrillator; Z79.01 Long term (current) use of anticoagulants; Z82.49 Family history of ischemic heart disease and other diseases of the circulatory system; Z68.20 Body mass index [BMI] 20.0-20.9, adult
CPT/HCPCS: 32405; 36415; 71045; 71275; 77012; 80048; 80053; 81003; 82270; 82378; 82607; 82728; 82746; 82784; 83010; 83021; 83540; 83550; 83615; 83735; 84100; 85014; 85018; 85025; 85651; 85660; 86256; 86300; 86334; 86850; 86880; 86900; 86920; 87070; 87449; 87635; 88305; 93005; 93306; 93970; 94640; 99152; 99153; J0456; J0696; J1650; J3010; J3475; J3480; J3490; J7060; P9016; Q9967; G0500